=== PATIENT | female | born 1965 | race Caucasian/White ===

== ENCOUNTER 2020-08-03 08:44 | Outpatient (REF) | payer MEDICARE, MEDICAID, SELFPAY ==
--- NOTE | 2020-08-03 | FL_ITS ---
EXAMINATION: XR FLUOROSCOPY WITH IMAGES CLINICAL INFORMATION: Bilateral diagnostic medial branch blocks COMPARISON: None. TECHNIQUE: Fluoroscopy performed by Dr. Kedar Parisi. Fluoroscopy time: 0.5 minutes DAP: 4.02 Gycm2 Images: 4 FINDINGS: There are spinal needles overlying the right L3 and L4 neural foramen with contrast in the nerve sheaths and extending transforaminal epidural. There is also contrast in the left nerve sheaths at L3, L4 and L5. IMPRESSION: Fluoroscopy for pain management procedure.
== END 2020-08-03 08:45 | disposition home or self-care (01) ==
LOC: HO.RADIR 08:44
PROVIDERS: Visit Provider Anesthesiology
DX: M47.816 Spondylosis without myelopathy or radiculopathy, lumbar region (principal)
CPT/HCPCS: 64493; Q9967

== ENCOUNTER → 2020-08-11 12:22 | Outpatient (BNVA) | payer MEDICARE, MEDICAID, SELFPAY | PROVIDERS: PCP Internal Medicine; Referring Provider Internal Medicine; Visit Provider Anesthesiology | DX: M47.816 Spondylosis without myelopathy or radiculopathy, lumbar region (principal); T84.84XA Pain due to internal orthopedic prosthetic devices, implants and grafts, initial encounter; Z96.641 Presence of right artificial hip joint; F11.20 Opioid dependence, uncomplicated | CPT/HCPCS: 99214 ==

== ENCOUNTER 2020-09-21 06:34 | Outpatient (REF) | payer MEDICARE, MEDICAID, SELFPAY ==
--- NOTE | 2020-09-21 08:14 | FL_ITS ---
EXAMINATION: XR FLUOROSCOPY WITH IMAGES CLINICAL INFORMATION: M47.816 - Spondylosis without myelopathy or radiculopathy, lumbar region COMPARISON: Radiographs lumbar spine 12/02/2014 TECHNIQUE: Fluoroscopy performed by Karina Cortes NP. Fluoroscopy time: 0.5 minutes DAP: 4.04 Gycm2 Images: 6 FINDINGS: There are bilateral spinal needles at the outer aspect of the L3-L4, L4-L5, and L5-S1 neural foramina. There is contrast in the nerve sheaths with some transforaminal epidural extension. FL/FL guidance in treatment room IMPRESSION: Fluoroscopy for pain management procedures.
== END 2020-09-21 06:35 | disposition home or self-care (01) ==
LOC: HO.RADIR 06:34
PROVIDERS: Visit Provider Anesthesiology
DX: M47.816 Spondylosis without myelopathy or radiculopathy, lumbar region (principal); T84.84XA Pain due to internal orthopedic prosthetic devices, implants and grafts, initial encounter; Z96.641 Presence of right artificial hip joint
CPT/HCPCS: 64493; 64494; Q9967

== ENCOUNTER → 2020-09-29 13:13 | Outpatient (BNVA) | payer MEDICARE, MEDICAID, SELFPAY | PROVIDERS: PCP Internal Medicine; Referring Provider Internal Medicine; Visit Provider Anesthesiology | DX: M47.816 Spondylosis without myelopathy or radiculopathy, lumbar region (principal); T84.84XA Pain due to internal orthopedic prosthetic devices, implants and grafts, initial encounter; M53.3 Sacrococcygeal disorders, not elsewhere classified; M46.1 Sacroiliitis, not elsewhere classified; Z96.641 Presence of right artificial hip joint | CPT/HCPCS: Q3014 ==

== ENCOUNTER → 2020-10-20 15:19 | Outpatient (BNVA) | payer MEDICARE, MEDICAID, SELFPAY | PROVIDERS: PCP Internal Medicine; Visit Provider Anesthesiology | DX: M47.816 Spondylosis without myelopathy or radiculopathy, lumbar region (principal); M53.3 Sacrococcygeal disorders, not elsewhere classified; M17.0 Bilateral primary osteoarthritis of knee; M46.1 Sacroiliitis, not elsewhere classified; T84.84XA Pain due to internal orthopedic prosthetic devices, implants and grafts, initial encounter; Z96.641 Presence of right artificial hip joint | CPT/HCPCS: Q3014 ==

== ENCOUNTER 2020-10-26 05:26 | Outpatient (REF) | payer MEDICARE, MEDICAID, SELFPAY ==
--- NOTE | 2020-10-26 07:34 | FL_ITS ---
EXAMINATION: XR FLUOROSCOPY WITH IMAGES CLINICAL INFORMATION: Sacroiliitis. COMPARISON: None. TECHNIQUE: Fluoroscopy performed by Karina Cortes NP. Fluoroscopy time: 0.2 minutes DAP: 0.2 Gycm2 Images: 2 FINDINGS: There are needles positioned bilateral inferior SI joints with contrast opacifying the adjacent soft tissues. FL/FL guidance in treatment room IMPRESSION: Fluoroscopy was provided to referring physician for SI joint injection and pain management.
== END 2020-10-26 05:27 | disposition home or self-care (01) ==
LOC: HO.RADIR 05:26
PROVIDERS: Visit Provider Anesthesiology
DX: T84.84XA Pain due to internal orthopedic prosthetic devices, implants and grafts, initial encounter (principal); M46.1 Sacroiliitis, not elsewhere classified; M47.816 Spondylosis without myelopathy or radiculopathy, lumbar region; M53.3 Sacrococcygeal disorders, not elsewhere classified; M17.0 Bilateral primary osteoarthritis of knee; Z96.641 Presence of right artificial hip joint
CPT/HCPCS: 27096; J3300; Q9967

== ENCOUNTER → 2020-11-04 15:32 | Outpatient (BNVA) | payer MEDICARE, MEDICAID, SELFPAY | PROVIDERS: PCP Internal Medicine; Visit Provider Student in an Organized Health Care Education/Training Program | DX: Z13.89 Encounter for screening for other disorder (principal) | CPT/HCPCS: Q3014 ==

== ENCOUNTER → 2020-12-01 15:42 | Outpatient (BNVA) | payer MEDICARE, MEDICAID, SELFPAY | PROVIDERS: PCP Internal Medicine; Visit Provider Anesthesiology | DX: M47.816 Spondylosis without myelopathy or radiculopathy, lumbar region (principal); M46.1 Sacroiliitis, not elsewhere classified; M53.3 Sacrococcygeal disorders, not elsewhere classified; M17.0 Bilateral primary osteoarthritis of knee; T84.84XA Pain due to internal orthopedic prosthetic devices, implants and grafts, initial encounter; Z96.641 Presence of right artificial hip joint | CPT/HCPCS: Q3014 ==